=== PATIENT | male | born 1985 | race Caucasian/White ===

== ENCOUNTER 2018-01-21 10:53 | Inpatient (IN) | payer MEDICAID ==
[~2018-01-21] VITALS: Ht 170.2 cm; Wt 79.4 kg
[2018-01-21] MEDS ORDERED: DIVA-76 PO (11:27)
[2018-01-21] MEDS ORDERED: BUPR100SR PO (11:27)
[2018-01-21] MEDS ORDERED: OLAN5TAB2 PO (11:27)
[2018-01-21] MEDS ORDERED: OLAN10TA3 PO (11:27)
[2018-01-21 11:54] LABS: BASOPHILS % (AUTO) 1.1 % (0.0-2.0); EOSINOPHILS % (AUTO) 4.8 % (1.0-6.0); HEMATOCRIT 48.9 % (41-53); HEMOGLOBIN 16.6 g/dL (13.5-17.5); LYMPHOCYTES # (AUTO) 1.8 K/uL (1.0-4.8); LYMPHOCYTES % (AUTO) 21.1 % (22.0-44.0); MEAN CORPUSCULAR HEMOGLOBIN 30.7 pg (26.0-34.0); MEAN CORPUSCULAR VOLUME 90 fL (80-100); MONOCYTES # (AUTO) 0.8 K/uL (0.1-1.0); MONOCYTES % (AUTO) 9.8 % (2.0-9.0); NEUTROPHILS # (AUTO) 5.4 K/uL (1.8-7.7); NEUTROPHILS % (AUTO) 63.2 % (40.0-70.0); PLATELET COUNT (AUTO) 306 K/uL (150-450); RED BLOOD CELL COUNT(AUTO) 5.42 MIL/uL (4.50-5.90); RED CELL DISTRIBUTION WIDTH 13.7 % (11.5-14.5)
[2018-01-21] MEDS ORDERED: LORazepam 2 MG TABLET PO ONE (12:00)
[2018-01-21] MEDS ORDERED: OLANZapine 5 MG TABLET PO ONE (12:00)
[2018-01-21 12:04] LABS: ANION GAP 7 mmol/L (8-16); CALCIUM, TOTAL 9.7 mg/dL (8.8-10.5); CARBON DIOXIDE 28 mmol/L (22-29); CHLORIDE 105 mmol/L (98-107); CREATININE 1.21 mg/dL (0.60-1.30); GLOMERULAR FILTR. RATE CALC > 60 mL/min (>60); GLUCOSE,RANDOM 105 mg/dL (70-110); POTASSIUM 4.1 mmol/L (3.5-5.1); SODIUM SERUM 140 mmol/L (136-145); UREA NITROGEN, BLOOD 20 mg/dL (7-18)
[2018-01-21 12:12] LABS: ALANINE AMINOTRANSFERASE 39 U/L (12-78); ALBUMIN 4.2 g/dL (3.4-5.0); ALKALINE PHOSPHATASE 80 U/L (46-116); ASPARTATE AMINOTRANSFERASE 14 U/L (15-37); BILIRUBIN,TOTAL 0.4 mg/dL (0.1-1.0); TOTAL PROTEIN, SERUM 7.9 g/dL (6.4-8.2); VALPROIC ACID 105 mcg/mL (50-100)
[2018-01-21 12:14] LABS: AMPHET/METH SCREEN,URINE NEGATIVE (NEGATIVE); BARBITURATE SCREEN, URINE NEGATIVE (NEGATIVE); BENZODIAZEPINES SCREEN,URINE NEGATIVE (NEGATIVE); CANNABINOID SCREEN,URINE NEGATIVE (NEGATIVE); COCAINE SCREEN,URINE NEGATIVE (NEGATIVE); METHADONE SCREEN, URINE NEGATIVE (NEGATIVE); OPIATE SCREEN,URINE NEGATIVE (NEGATIVE); PHENCYCLIDINE SCREEN,URINE NEGATIVE (NEGATIVE)
[2018-01-21] MEDS ORDERED: OLANZapine 5 MG RAPDIS TABLET PO PRN (13:00)
[2018-01-21] MEDS ORDERED: HydrOXYzine PAMOATE 50 MG CAPSULE PO ONE (14:00)
[2018-01-21 18:41] VITALS: BP 112/89
[2018-01-21] MEDS ORDERED: PETROLATUM,WHITE 71 GM JELLY TP PRN (19:30)
[2018-01-21] MEDS ORDERED: IBUPROFEN 400 MG TABLET PO PRN (19:30)
[2018-01-21] MEDS ORDERED: ALBUTEROL SULFATE HFA 90 MCG/PUFF 8 GM INHALER IH PRN (19:30)
[2018-01-21] MEDS ORDERED: MAGNESIUM HYDROXIDE SUSPENSION 30 ML UDCUP PO PRN (19:30)
[2018-01-21] MEDS ORDERED: MAG HYDROX/AL HYDROX/SIMETH ES 30 ML SUSPENSION UDCUP PO PRN (19:30)
[2018-01-21] MEDS ORDERED: LOPERAMIDE HCL 2 MG CAPSULE PO PRN (19:30)
[2018-01-21] MEDS ORDERED: ACETAMINOPHEN 325 MG TABLET PO PRN (19:30)
[2018-01-21] MEDS ORDERED: ONDANSETRON HCL 4 MG TABLET PO PRN (19:30)
[2018-01-21] MEDS ORDERED: DOCUSATE SODIUM 100 MG CAPSULE PO PRN (19:30)
[2018-01-21] MEDS ORDERED: CloNIDine HCL 0.1 MG TABLET PO PRN (19:30)
[2018-01-21] MEDS ORDERED: GuaiFENesin/D-METHORPHAN [SUGAR-FREE] 200-20MG/10 ML SYRUP UDCUP PO PRN (19:30)
[2018-01-21] MEDS: ZOLPIDEM TARTRATE 10 MG TABLET PO PRN (20:40)
[2018-01-22 06:02] VITALS: BP 120/81
[2018-01-22] MEDS: NICOTINE 14 MG/24 HOUR PATCH TD SCH (08:24)
[2018-01-22 08:27] VITALS: BP 111/61
[2018-01-22 08:36] LABS: BASOPHILS % (AUTO) 0.9 % (0.0-2.0); HEMATOCRIT 48.3 % (41-53); HEMOGLOBIN 16.3 g/dL (13.5-17.5); LYMPHOCYTES # (AUTO) 2.4 K/uL (1.0-4.8); LYMPHOCYTES % (AUTO) 32.5 % (22.0-44.0); MEAN CORPUSCULAR HEMOGLOBIN 30.5 pg (26.0-34.0); MEAN CORPUSCULAR HGB CONC 33.7 G/dL (31.0-37.0); MEAN CORPUSCULAR VOLUME 90 fL (80-100); MONOCYTES # (AUTO) 1.1 K/uL (0.1-1.0); MONOCYTES % (AUTO) 14.1 % (2.0-9.0); NEUTROPHILS # (AUTO) 3.5 K/uL (1.8-7.7); NEUTROPHILS % (AUTO) 46.5 % (40.0-70.0); PLATELET COUNT (AUTO) 299 K/uL (150-450); RED BLOOD CELL COUNT(AUTO) 5.34 MIL/uL (4.50-5.90); RED CELL DISTRIBUTION WIDTH 13.7 % (11.5-14.5)
[2018-01-22 08:52] LABS: HEMOGLOBIN A1C 5.4 % (4.5-6.2)
[2018-01-22 09:33] LABS: ALANINE AMINOTRANSFERASE 33 U/L (12-78); ALBUMIN 3.8 g/dL (3.4-5.0); ALKALINE PHOSPHATASE 75 U/L (46-116); ANION GAP 7 mmol/L (8-16); ASPARTATE AMINOTRANSFERASE 14 U/L (15-37); BILIRUBIN,TOTAL 0.8 mg/dL (0.1-1.0); CARBON DIOXIDE 28 mmol/L (22-29); CHLORIDE 104 mmol/L (98-107); CHOL/HDL RATIO 4.3 (4.2-7.3); CHOLESTEROL 163 mg/dL (131-200); CREATININE 1.22 mg/dL (0.60-1.30); GLOMERULAR FILTR. RATE CALC > 60 mL/min (>60); GLUCOSE,RANDOM 84 mg/dL (70-110); HDL CHOLESTEROL 38 mg/dL (40-60); LDL CHOL (CALC.) 104 mg/dL (0-130); SODIUM SERUM 139 mmol/L (136-145); THYROID STIMULATING HORMONE 0.87 uIU/mL (0.36-3.74); TOTAL PROTEIN, SERUM 7.2 g/dL (6.4-8.2); TRIGLYCERIDES 104 mg/dL (15-150); UREA NITROGEN, BLOOD 17 mg/dL (7-18)
[2018-01-22 10:16] LABS: PLATELET MORPHOLOGY COMMENT GIANT PLTS PRESENT
[2018-01-22 16:16] VITALS: BP 114/67
[2018-01-22] MEDS: LORazepam 2 MG TABLET PO PRN (17:32)
[2018-01-22] MEDS: ZOLPIDEM TARTRATE 10 MG TABLET PO PRN (20:32)
[2018-01-22] MEDS ORDERED: MIRTAZAPINE 15 MG TABLET PO SCH (21:00)
[2018-01-23 06:24] VITALS: BP 104/67
[2018-01-23] MEDS: ARIPiprazole 5 MG TABLET PO SCH (08:16)
[2018-01-23] MEDS: NICOTINE 14 MG/24 HOUR PATCH TD SCH (08:16)
[2018-01-23 08:17] VITALS: BP 104/63
[2018-01-23] MEDS: LORazepam 2 MG TABLET PO PRN ×3 (10:46→19:02)
[2018-01-23 16:14] VITALS: BP 114/85
[2018-01-23] MEDS: MIRTAZAPINE 15 MG TABLET PO SCH ×2 (19:55→20:05)
[2018-01-23] MEDS: ZOLPIDEM TARTRATE 10 MG TABLET PO PRN (20:05)
[2018-01-24 05:19] VITALS: BP 109/73
[2018-01-24 08:12] VITALS: BP 117/68
[2018-01-24] MEDS: ARIPiprazole 5 MG TABLET PO SCH (08:29)
[2018-01-24] MEDS: NICOTINE 14 MG/24 HOUR PATCH TD SCH (08:34)
[2018-01-24] MEDS: LORazepam 2 MG TABLET PO PRN (09:42)
[2018-01-24] MEDS ORDERED: MIRT15 PO (10:18)
[2018-01-24] MEDS ORDERED: ARIP5TAB8 PO ×2 (10:18→10:45)
[2018-01-24] MEDS ORDERED: MIRT30 PO (10:45)
== END 2018-01-24 14:15 | disposition home or self-care (01) | DRG 751 ==
LOC: EMS 10:54 → B2S 15:42
PROVIDERS: ADMIT Psychiatry & Neurology Psychiatry; ATTEND Psychiatry & Neurology Psychiatry
PROC: 3E0234Z Introduction of Serum, Toxoid and Vaccine into Muscle, Percutaneous Approach (ICD-10-PCS; principal; 2018-01-22)
DX: F33.3 Major depressive disorder, recurrent, severe with psychotic symptoms (principal); R45.851 Suicidal ideations; F10.10 Alcohol abuse, uncomplicated; Z71.6 Tobacco abuse counseling; Z71.41 Alcohol abuse counseling and surveillance of alcoholic; Z71.51 Drug abuse counseling and surveillance of drug abuser; F11.90 Opioid use, unspecified, uncomplicated; F15.90 Other stimulant use, unspecified, uncomplicated; F17.200 Nicotine dependence, unspecified, uncomplicated; F41.9 Anxiety disorder, unspecified; G47.00 Insomnia, unspecified; Z59.0 Homelessness; Z79.899 Other long term (current) drug therapy; Z91.5 Personal history of self-harm; R45.87 Impulsiveness; Z23 Encounter for immunization
CPT/HCPCS: 83036; 84443; 87081; 90686; 99285; G0480

== ENCOUNTER 2020-11-14 10:51 | Inpatient (IN) | payer MEDICAID, OTHER ==
[~2020-11-14] VITALS: Ht 167.6 cm; Wt 84.0 kg
[~2020-11-14 10:51] MED LIST: ARIP5TAB37 PO; MIRT-89 PO; MIRT30 PO
[2020-11-14] MEDS ORDERED: ZOLP10TA8 PO (11:35)
[2020-11-14] MEDS ORDERED: MELO-107 PO (11:35)
[2020-11-14] MEDS ORDERED: CLON0.2T PO (11:35)
[2020-11-14] MEDS ORDERED: BUPR1FIL3 SL (11:35)
[2020-11-14 12:27] LABS: BASOPHILS % (AUTO) 0.3 % (0.0-2.0); EOSINOPHILS % (AUTO) 0.8 % (1.0-6.0); HEMATOCRIT 40.4 % (41-53); HEMOGLOBIN 13.5 g/dL (13.5-17.5); LYMPHOCYTES # (AUTO) 1.7 K/uL (1.0-4.8); LYMPHOCYTES % (AUTO) 21.5 % (22.0-44.0); MEAN CORPUSCULAR HEMOGLOBIN 31.6 pg (26.0-34.0); MEAN CORPUSCULAR HGB CONC 33.4 G/dL (31.0-37.0); MEAN CORPUSCULAR VOLUME 95 fL (80-100); MONOCYTES # (AUTO) 0.3 K/uL (0.1-1.0); MONOCYTES % (AUTO) 4.5 % (2.0-9.0); NEUTROPHILS # (AUTO) 5.6 K/uL (1.8-7.7); NEUTROPHILS % (AUTO) 72.9 % (40.0-70.0); PLATELET COUNT (AUTO) 231 K/uL (150-450); RED BLOOD CELL COUNT(AUTO) 4.27 MIL/uL (4.50-5.90); RED CELL DISTRIBUTION WIDTH 14.1 % (11.5-14.5)
[2020-11-14 12:37] LABS: ANION GAP 6 mmol/L (8-16); CALCIUM, TOTAL 9.1 mg/dL (8.8-10.5); CARBON DIOXIDE 26 mmol/L (22-29); CHLORIDE 105 mmol/L (98-107); CREATININE 0.69 mg/dL (0.60-1.30); GLOMERULAR FILTR. RATE CALC > 60 mL/min (>60); GLUCOSE,RANDOM 87 mg/dL (70-110); POTASSIUM 3.8 mmol/L (3.5-5.1); SODIUM SERUM 137 mmol/L (136-145); UREA NITROGEN, BLOOD 11 mg/dL (7-18)
[2020-11-14 12:43] LABS: ALANINE AMINOTRANSFERASE 22 U/L (12-78); ALKALINE PHOSPHATASE 55 U/L (46-116); ASPARTATE AMINOTRANSFERASE 14 U/L (15-37); BILIRUBIN,TOTAL 0.4 mg/dL (0.1-1.0); TOTAL PROTEIN, SERUM 7.8 g/dL (6.4-8.2)
[2020-11-14 12:45] LABS: AMPHET/METH SCREEN,URINE NEGATIVE (NEGATIVE); BARBITURATE SCREEN, URINE NEGATIVE (NEGATIVE); BENZODIAZEPINES SCREEN,URINE NEGATIVE (NEGATIVE); CANNABINOID SCREEN,URINE NEGATIVE (NEGATIVE); COCAINE SCREEN,URINE NEGATIVE (NEGATIVE); METHADONE SCREEN, URINE NEGATIVE (NEGATIVE); OPIATE SCREEN,URINE NEGATIVE (NEGATIVE)
[2020-11-14 12:46] LABS: PHENCYCLIDINE SCREEN,URINE NEGATIVE (NEGATIVE)
[2020-11-14 13:52] LABS: COVID AG,FIA SOURCE NASOPHARYNGEAL
[2020-11-14] MEDS ORDERED: LORazepam 2 MG TABLET PO PRN (14:00)
[2020-11-14] MEDS ORDERED: HALOPERIDOL 5 MG TABLET PO PRN (14:00)
[2020-11-14] MEDS ORDERED: LORazepam 2 MG TABLET PO ONE (14:30)
[2020-11-14] MEDS ORDERED: IBUPROFEN 400 MG TABLET PO PRN (15:45)
[2020-11-14] MEDS ORDERED: CloNIDine HCL 0.1 MG TABLET PO PRN (15:45)
[2020-11-14] MEDS ORDERED: PETROLATUM,WHITE 28 GM JELLY TP PRN (15:45)
[2020-11-14] MEDS ORDERED: MAGNESIUM HYDROXIDE SUSPENSION 30 ML UDCUP PO PRN (15:45)
[2020-11-14] MEDS ORDERED: LOPERAMIDE HCL 2 MG CAPSULE PO PRN (15:45)
[2020-11-14] MEDS ORDERED: MAG HYDROX/AL HYDROX/SIMETH ES 30 ML SUSPENSION UDCUP PO PRN (15:45)
[2020-11-14] MEDS ORDERED: NICOTINE 14 MG/24 HOUR PATCH TD PRN (15:45)
[2020-11-14] MEDS ORDERED: DOCUSATE SODIUM 100 MG CAPSULE PO PRN (15:45)
[2020-11-14] MEDS ORDERED: ONDANSETRON HCL 4 MG TABLET PO PRN (15:45)
[2020-11-14] MEDS ORDERED: GuaiFENesin/D-METHORPHAN [SUGAR-FREE] 200-20MG/10 ML SYRUP UDCUP PO PRN (15:45)
[2020-11-14] MEDS ORDERED: ACETAMINOPHEN 325 MG TABLET PO PRN (15:45)
[2020-11-14] MEDS ORDERED: ALBUTEROL SULFATE HFA 90 MCG/PUFF 8 GM INHALER IH PRN (15:45)
[2020-11-14] MEDS: ZOLPIDEM TARTRATE 10 MG TABLET PO PRN (20:09)
[2020-11-14] MEDS: MELOXICAM 7.5 MG TABLET PO SCH (21:39)
[2020-11-14] MEDS: CloNIDine HCL 0.1 MG TABLET PO SCH (21:40)
[2020-11-14 21:43] VITALS: BP 126/70
[2020-11-15 00:26] VITALS: BP 103/64
[2020-11-15] MEDS ORDERED: MAGNESIUM HYDROXIDE SUSPENSION 30 ML UDCUP PO PRN (08:00)
[2020-11-15] MEDS ORDERED: LOPERAMIDE HCL 2 MG CAPSULE PO PRN (08:00)
[2020-11-15] MEDS ORDERED: GuaiFENesin/D-METHORPHAN [SUGAR-FREE] 200-20MG/10 ML SYRUP UDCUP PO PRN (08:00)
[2020-11-15] MEDS ORDERED: ALBUTEROL SULFATE HFA 90 MCG/PUFF 8 GM INHALER IH PRN (08:00)
[2020-11-15] MEDS ORDERED: CloNIDine HCL 0.1 MG TABLET PO PRN (08:00)
[2020-11-15] MEDS ORDERED: IBUPROFEN 400 MG TABLET PO PRN (08:00)
[2020-11-15] MEDS ORDERED: ACETAMINOPHEN 325 MG TABLET PO PRN (08:00)
[2020-11-15] MEDS ORDERED: MAG HYDROX/AL HYDROX/SIMETH ES 30 ML SUSPENSION UDCUP PO PRN (08:00)
[2020-11-15] MEDS ORDERED: ONDANSETRON HCL 4 MG TABLET PO PRN (08:00)
[2020-11-15] MEDS ORDERED: NICOTINE 14 MG/24 HOUR PATCH TD PRN (08:00)
[2020-11-15] MEDS ORDERED: PETROLATUM,WHITE 28 GM JELLY TP PRN (08:00)
[2020-11-15] MEDS ORDERED: DOCUSATE SODIUM 100 MG CAPSULE PO PRN (08:00)
[2020-11-15 08:21] LABS: HEMOGLOBIN A1C 4.8 % (3.8-5.6)
[2020-11-15 08:36] LABS: CHOL/HDL RATIO 4.1 (4.2-7.3); FREE T4 (FREE THYROXINE) 1.27 ng/dL (0.76-1.46); THYROID STIMULATING HORMONE 0.57 uIU/mL (0.36-3.74)
[2020-11-15] MEDS: CloNIDine HCL 0.1 MG TABLET PO SCH (08:53)
[2020-11-15] MEDS: MELOXICAM 7.5 MG TABLET PO SCH (08:54)
[2020-11-15 08:55] VITALS: BP 129/64
[2020-11-15] MEDS: SERTRALINE HCL 50 MG TABLET PO SCH (12:40)
[2020-11-15] MEDS: BUPRENORPHINE HCL/NALOXONE HCL 8-2 MG SUBLINGUAL TABLET SL SCH ×2 (12:58→16:26)
[2020-11-15] MEDS: RisperiDONE 2 MG TABLET PO SCH (16:26)
[2020-11-15 16:38] VITALS: BP 102/71
[2020-11-15] MEDS: ZOLPIDEM TARTRATE 10 MG TABLET PO PRN (20:34)
[2020-11-16 01:09] VITALS: BP 129/67
[2020-11-16] MEDS: MELOXICAM 7.5 MG TABLET PO SCH ×2 (06:56→17:27)
[2020-11-16 08:18] VITALS: BP 105/59
[2020-11-16] MEDS: RisperiDONE 2 MG TABLET PO SCH ×2 (08:48→17:25)
[2020-11-16] MEDS: SERTRALINE HCL 50 MG TABLET PO SCH (08:48)
[2020-11-16] MEDS: BUPRENORPHINE HCL/NALOXONE HCL 8-2 MG SUBLINGUAL TABLET SL SCH ×2 (08:48→17:29)
[2020-11-16] MEDS: CloNIDine HCL 0.1 MG TABLET PO SCH (08:48)
[2020-11-16 16:13] VITALS: BP 100/53
[2020-11-16] MEDS: ZOLPIDEM TARTRATE 10 MG TABLET PO PRN (20:08)
[2020-11-17 00:37] VITALS: BP 105/63
[2020-11-17 08:18] VITALS: BP 128/67
[2020-11-17] MEDS: SERTRALINE HCL 50 MG TABLET PO SCH (08:19)
[2020-11-17] MEDS: CloNIDine HCL 0.1 MG TABLET PO SCH (08:19)
[2020-11-17] MEDS: BUPRENORPHINE HCL/NALOXONE HCL 8-2 MG SUBLINGUAL TABLET SL SCH (08:19)
[2020-11-17] MEDS: RisperiDONE 2 MG TABLET PO SCH (08:19)
[2020-11-17] MEDS ORDERED: SERT-158 PO ×2 (11:39→11:40)
[2020-11-17] MEDS ORDERED: RISP2TAB45 PO (11:40)
== END 2020-11-17 13:10 | disposition home or self-care (01) | DRG 750 ==
LOC: EMS 11:33 → B2S 14:07
PROVIDERS: ADMIT Psychiatry & Neurology Psychiatry; ATTEND Psychiatry & Neurology Psychiatry
DX: F25.1 Schizoaffective disorder, depressive type (principal); R45.851 Suicidal ideations; E11.9 Type 2 diabetes mellitus without complications; F17.210 Nicotine dependence, cigarettes, uncomplicated; Z20.822 Contact with and (suspected) exposure to COVID-19; K59.00 Constipation, unspecified; G47.00 Insomnia, unspecified; R10.13 Epigastric pain; F31.9 Bipolar disorder, unspecified; Z91.14 Patient's other noncompliance with medication regimen; Z88.8 Allergy status to other drugs, medicaments and biological substances
CPT/HCPCS: 80053; 80061; 83036; 84439; 84443; 85025; 99285; G0480